=== PATIENT | female | born 1965 ===

== ENCOUNTER 2023-01-28 10:26 | Outpatient (CLI) | payer OTHER | END 2023-01-28 10:29 | disposition home or self-care (01) | LOC: LAB 10:26 | DX: E11.65 Type 2 diabetes mellitus with hyperglycemia (principal); E78.2 Mixed hyperlipidemia; I10 Essential (primary) hypertension ==

== ENCOUNTER 2023-02-10 08:44 | Outpatient (CLI) | payer OTHER | END 2023-02-10 08:55 | disposition home or self-care (01) | LOC: RAD 08:44 | PROVIDERS: ATTEND Internal Medicine Rheumatology | DX: M50.80 Other cervical disc disorders, unspecified cervical region (principal) ==

== ENCOUNTER 2023-02-12 08:14 | Outpatient (CLI) | payer OTHER | END 2023-02-12 12:39 | disposition home or self-care (01) | LOC: LAB 08:14 | PROVIDERS: ATTEND Student in an Organized Health Care Education/Training Program | DX: E11.65 Type 2 diabetes mellitus with hyperglycemia (principal); E78.2 Mixed hyperlipidemia; I10 Essential (primary) hypertension ==

== ENCOUNTER → 2023-05-08 06:34 | Outpatient (CLI) | payer OTHER | END | disposition home or self-care (01) | LOC: LAB 06:34 | PROVIDERS: ATTEND Student in an Organized Health Care Education/Training Program | DX: E11.65 Type 2 diabetes mellitus with hyperglycemia (principal); E78.2 Mixed hyperlipidemia; I10 Essential (primary) hypertension ==

== ENCOUNTER 2023-05-08 08:15 | Outpatient (CLI) | payer OTHER | END 2023-05-08 08:17 | disposition home or self-care (01) | LOC: SONOGRAMA 08:15 | PROVIDERS: ATTEND Internal Medicine Rheumatology | DX: M75.100 Unspecified rotator cuff tear or rupture of unspecified shoulder, not specified as traumatic (principal); M75.110 Incomplete rotator cuff tear or rupture of unspecified shoulder, not specified as traumatic ==

== ENCOUNTER 2023-08-19 06:58 | Outpatient (CLI) | payer OTHER ==
[2023-08-19 08:12] LABS: URINE APPEARANCE Clear; URINE BILIRRUBIN Negative (NEGATIVE); URINE BLOOD Negative; URINE COLOR Yellow; URINE LEUKOCYTE Trace; URINE NITRATE Negative; URINE PROTEIN Trace (NEGATIVE)
[2023-08-19 08:17] LABS: URINE BACTERIA 997.9 uL (0.0-1933); URINE EPITHELIAL CELLS 36.6 uL (0.0-38.8); URINE RBC 21.9 uL (0.0-20.8); URINE WBC 11.5 uL (0.0-23.2)
[2023-08-19 08:21] LABS: URINE GLUCOSE 500 MG/DL (NEGATIVE)
[2023-08-19 08:33] LABS: INR < 0.93; PARTIAL THROMBOPLASTIN TIME 23.1 SECONDS (22.0-34.0); PROTHROMBIN TIME 9.5 SECONDS (9.0-11.5)
[2023-08-19 10:39] LABS: HEMATOCRIT 37.5 % (36.0-45.00); HEMOGLOBIN 12.6 g/dL (12.0-15.00); MEAN CELL VOLUME 84.8 fL (80.00-100.00); MEAN CORPUSCULAR HEMOGLOBIN 28.6 pg (27.00-32.0); MEAN CORPUSCULAR HGB CONC 33.7 g/dl (32.0-36.0); PLATELET COUNT 229 K/uL (150-450); RED BLOOD COUNT 4.43 M/uL (4.00-6.00); RED CELL DISTRIBUTION WIDTH 13.8 % (11.5-14.5)
[2023-08-19 10:51] LABS: CALCIUM 9.6 mg/dL (8.5-10.1); CREATININE SERUM 0.83 mg/dL (0.55-1.02); GFR 70.86; POTASSIUM 3.93 mEq/L (3.5-5.1)
== END 2023-08-19 07:00 | disposition home or self-care (01) ==
LOC: LAB 06:58
PROVIDERS: ATTEND Ophthalmology
DX: I15.8 Other secondary hypertension (principal); D68.32 Hemorrhagic disorder due to extrinsic circulating anticoagulants; D69.9 Hemorrhagic condition, unspecified

== ENCOUNTER → 2023-08-20 09:49 | Outpatient (CLI) | payer OTHER ==
[2023-08-20 12:46] LABS: ob NEGATIVE (NEGATIVE)
== END | disposition home or self-care (01) ==
LOC: LAB 09:49
PROVIDERS: ATTEND Internal Medicine
DX: I10 Essential (primary) hypertension (principal); E78.5 Hyperlipidemia, unspecified; E78.2 Mixed hyperlipidemia; D68.9 Coagulation defect, unspecified; E03.8 Other specified hypothyroidism; M06.4 Inflammatory polyarthropathy; Z85.038 Personal history of other malignant neoplasm of large intestine; Z12.11 Encounter for screening for malignant neoplasm of colon; E11.9 Type 2 diabetes mellitus without complications; E55.9 Vitamin D deficiency, unspecified; N39.9 Disorder of urinary system, unspecified; N20.0 Calculus of kidney; R19.5 Other fecal abnormalities; M81.0 Age-related osteoporosis without current pathological fracture

== ENCOUNTER 2023-10-09 09:00 | Outpatient (CLI) | payer OTHER | END 2023-10-09 13:39 | disposition home or self-care (01) | LOC: MAMO-SONO 09:00 | PROVIDERS: ATTEND Internal Medicine Rheumatology | DX: Z12.31 Encounter for screening mammogram for malignant neoplasm of breast (principal) ==